=== PATIENT | male | born 1960 | race Caucasian/White ===

== ENCOUNTER → 2023-03-25 06:26 | Day surgery (SDC) | payer BC, SELFPAY | LOC: GI 06:26 | PROVIDERS: ATTENDING PHYSICIAN Internal Medicine Gastroenterology | DX: Z12.11 Encounter for screening for malignant neoplasm of colon (principal); K64.0 First degree hemorrhoids; D12.2 Benign neoplasm of ascending colon; D12.3 Benign neoplasm of transverse colon; D12.5 Benign neoplasm of sigmoid colon; D12.8 Benign neoplasm of rectum; K63.5 Polyp of colon; K22.2 Esophageal obstruction; K22.89 Other specified disease of esophagus; K44.9 Diaphragmatic hernia without obstruction or gangrene; K31.7 Polyp of stomach and duodenum; K31.89 Other diseases of stomach and duodenum; R10.84 Generalized abdominal pain; K20.90 Esophagitis, unspecified without bleeding | CPT/HCPCS: 43251; 45380; 45385; 43239; 88305; 88342 ==

== ENCOUNTER 2023-04-08 08:48 | Emergency (ER) | payer BC, SELFPAY ==
[2023-04-08 08:49] VITALS: BP 158/91
--- NOTE | 2023-04-08 09:27 | ED.GENMED ---
History of Present Illness
General
Chief Complaint: Nose Bleed
Source: patient
Exam Limitations: none
Time Seen by Provider: 04/08/23 09:06
Nursing documentation reviewed up to this point in time: agreed with
Travel History
Have you had any contact with someone who has COVID-19?: No
Do you have any symptoms of coronavirus? Fever > 100 degrees, chills, cough, shortness of breath, sore throat, loss of taste or smell, muscle aches, or headache?: No
History of Present Illness
History of Present Illness:
62-year-old male with history as documented presents to the emergency room for epistaxis. Patient reports onset of symptoms 3 days ago they have been intermittent. He denies any inciting trauma or injury. He says that he initially started
bleeding out of the right nare when he bent over to tack picker his cats food bowl. He says that since then he has had 3-4 episodes of epistaxis from the right nare that resolved after pressure. This morning he says that bleeding started 'like a
faucet' out of the right nare and he had trouble controlling it and so he came to the emergency room. Fortunately bleeding has stopped since arrival here to the emergency room. He denies any bleeding at the left nare today. He denies any
significant posterior bleeding or swallowing of blood. He denies being on any blood thinners.
Past History
Past History
ED Past Medical History: Asthma, GERD and Other (Chronic sinus problems, Lymes disease)
ED Past Surgical History: Cholecystectomy and Orthopedic
Social History
Tobacco: Smoker
Alcohol: Occasional
Drug: None
Personal:
Living: with family
Employment: Employed
Family History
Family History: Early CAD and CAD
Review of Systems
Review of Systems
All Other Systems: ROS reviewed and negative except as documented in HPI and ROS
EENT: Reports other (Epistaxis)
Phy Exam
Physical Exam
Physical Exam:
General: Awake, alert; no acute distress
Head: Normocephalic, atraumatic
Eyes: Conjunctiva normal, sclera anicteric
Nose: Patient has abrasion to the right nasal septum at the 6 o'clock position with no active bleeding; no blood around the left nare and left nasal septum appears normal
Throat: Airway intact, handling secretions, no posterior bleeding
Neck: Trachea midline
Lungs: Breathing comfortably in no distress
Heart: Regular rate
Neuro: No gross deficit
Skin: no rash
Extremities: Warm, well-perfused
Scores
Heart Failure Risk
Heart Failure Risk Score: Not Applicable
Heart Score for Chest Pain Patients
STEMI patient?: Not applicable
Withdrawal Assessment of Alcohol
Withdrawal Assessment Completed?: Not applicable
Course
Vital Signs
Initial and Last Documented VS:
Initial Vital Signs
Temp Pulse Resp BP Pulse Ox
36.8 C 104 18 158/91 98
04/08/23 08:49 04/08/23 08:49 04/08/23 08:49 04/08/23 08:49 04/08/23 08:49
Last Documented Vital Signs
Temp Pulse Resp BP Pulse Ox
36.8 C 104 18 158/91 98
04/08/23 08:49 04/08/23 08:49 04/08/23 08:49 04/08/23 08:49 04/08/23 08:49
Procedures
Nosebleed
Drug treatment: Epinephrine
Treatment: Silver nitrate cautery
Post treatment bleeding: none- good control
MDM/Problems Addressed
Differential Diagnosis Includes:
Anterior epistaxis
MDM/Problems Addressed:
62-year-old male presents to the emergency room for evaluation of intermittent bleeding from the right nare over the past 3 days. Currently hemostatic but he has a visible source of bleeding on the right nasal septum. Pretreated with some local
topical epinephrine and performed silver nitrate cautery to prevent rebleeding. Observed after cautery with no additional bleeding. Will discharge, referred to ENT as needed, advised to use Vaseline to keep the nasal septum moist. He feels
comfortable with this plan. Spoke about return precautions all questions answered.
Acute Exacerbation and/or Progression of Chronic Illness:
Acutely hypertensive�no signs or symptoms of hypertensive emergency no indication for emergent antihypertensive treatment at present
Acute Exacerbation and/or Progression of Chronic Illness: HTN
*Pulse Oximetry
Patient hypoxic: no
*Critical Care Note
Total Time (30-74mins, 75-104mins- exclusive of procedures): Not Applicable
Data Reviewed
Source: patient
ED Attending Note
-
Portions of this chart may have been created with voice recognition software.� Occasional wrong word or��sound alike� substitutions may have occurred due to the inherent limitations of voice recognition software.
Discharge Plan
Departure
Patient with high blood pressure during this ER visit?: Yes
Discharge Problem:
Acute anterior epistaxis
Instructions: Nosebleeds (DC)
Prescriptions:
No Action
phenazopyridine 200 MG tablet
200 mg PO PRN PRN (Reason: bladder pain)
lidocaine [LMX 4] 1 APPLIC cream
1 applic S PRN PRN (Reason: pain)
metronidazole 500 MG tablet
500 mg PO TID
acyclovir 400 MG tablet
400 mg PO TID
vancomycin [Vancocin] 250 MG capsule
500 mg PO QID
mupirocin 1 APPLIC ointment
1 applic topical PRN PRN (Reason: unknown)
fluconazole 100 MG tablet
100 mg PO DAILY Qty: 7 0RF
triamcinolone acetonide [Kenalog] 15 GM ointment
1 applic S BID Qty: 1 0RF
Referrals:
Tien Arias MD [Family Provider] - Call in 1-3 days for appt
Codey Garcia MD [Active] - As needed (ENT)
Activity Restrictions/Additional Instructions:
Thank you for visiting the Emergency Department at [facility].
1. Please schedule a follow up appointment as directed. Call first thing tomorrow morning to make an appointment.
2. If indicated, please take your medications as instructed and indicated on discharge paperwork.
3. If any of your symptoms do not improve, or persist, or become more severe within 6-12 hours, please return to the emergency department for further care.
4. Please return to the emergency department if you develop a headache, neck pain/stiffness, fever greater than 100.4F, chest pain, shortness of breath, persistent nausea, vomiting, slurred speech, difficulty walking, numbness/tingling, weakness,
signs of infection or any other symptoms that are worrisome to you.
Please call [phone] if you have any questions.
[2023-04-08 10:35] VITALS: BP 132/74
== END 2023-04-08 10:44 | disposition home or self-care (01) ==
LOC: EMR 08:48
PROVIDERS: EMERGENCY PHYSICIAN Emergency Medicine; FAMILY PHYSICIAN Family Medicine
DX: R04.0 Epistaxis (principal); F17.200 Nicotine dependence, unspecified, uncomplicated; R03.0 Elevated blood-pressure reading, without diagnosis of hypertension
CPT/HCPCS: 99282; 30901

== ENCOUNTER 2023-04-08 21:58 | Emergency (ER) | payer BC, SELFPAY ==
[2023-04-08 22:01] VITALS: BP 153/97
--- NOTE | 2023-04-08 22:45 | ED.GENMED ---
History of Present Illness
General
Chief Complaint: Nose Bleed
Time Seen by Provider: 04/08/23 22:31
Travel History
Have you had any contact with someone who has COVID-19?: No
Do you have any symptoms of coronavirus? Fever > 100 degrees, chills, cough, shortness of breath, sore throat, loss of taste or smell, muscle aches, or headache?: No
History of Present Illness
History of Present Illness:
HPI: The patient presents with recurrence of nosebleed. I reviewed the records from earlier today. The patient had been having nosebleeds that started 2 days ago. Today he came in and had chemical cauterization to the right anterior nasal septum.
He was doing well until he sneezed this evening and then bleeding became more severe
EXAM:
GENERAL: Well appearing in no distress
HEENT: Moist oral mucosa, there is a recent appearing subcentimeter region of recent bleeding (without active bleeding) to the anterior inferior aspect of the right nasal septum
NEUROLOGIC: Excellent strength all extremities, no coordination deficits
PSYCHIATRIC: Appropriate mental status, normal insight and judgement
EXTREMITIES: Nontender, no edema, moves all extremities equally
SKIN: No rash, no lesions
ED COURSE:
10:45 PM: I initially evaluated patient
NUMBER AND COMPLEXITY OF PROBLEMS ADDRESSED AT THE ENCOUNTER
� Chronic conditions affecting care: COPD, history of Raynaud's
� Acute Exacerbation and/or Progression of Chronic Illness:
� Differential Diagnosis includes: Anterior epistaxis, posterior epistaxis
AMOUNT AND/OR COMPLEXITY OF DATA TO BE REVIEWED AND ANALYZED
� I performed an independent evaluation of and my interpretation is:
EKG:
CT:
X-rays:
Laboratory Studies:
Other:
� Review of other/old records: I reviewed the notes from earlier today
� Clinical information was obtained by an independent historian: I spoke to son
� Prescriptions/Medications Considered but not given:
� Further testing considered but not performed:
RISK OF COMPLICATIONS AND/OR MORBIDITY OR MORTALITY OF PATIENT MANAGEMENT
� Social determinants of health affecting care: Lives at home
� Discussion with other providers:
� Escalation of care including admission/observation vs risk of discharge considered: I initially used [place]-Synephrine soaked cotton and then placed a larger area of silver nitrate cauterization to the right anterior nasal septum.
There was no further bleeding however the patient was concerned about ongoing bleeding I then 5.5 cm rapid Rhino however the patient could not tolerate the discomfort and this was stopped mid procedure. I then placed an 8 x 4 inch Surgicel into
the right anterior nasal septum to axis packing. He says he already has an ENT doctor to follow-up with.
Past History
Past History
ED Past Medical History: Asthma, GERD and Other (Chronic sinus problems, Lymes disease)
ED Past Surgical History: Cholecystectomy and Orthopedic
Social History
Tobacco: Smoker
Alcohol: Occasional
Drug: None
Personal:
Living: with family
Employment: Employed
Family History
Family History: Early CAD and CAD
Phy Exam
Physical Exam
Physical Exam:
See HPI
Course
Orders/Labs/Results
Orders:
Orders
04/08/23 22:51
Phenylephrine 0.5% Regular Spr [[place]-Synephrine 0.5% Nasal [place]] 1 spray .ROUTE .[facility]
04/08/23 22:53
Phenylephrine 0.5% Regular Spr [[place]-Synephrine 0.5% Nasal [place]] 1 spray NASAL NOW STA
Vital Signs
Initial and Last Documented VS:
Initial Vital Signs
Temp Pulse Resp BP Pulse Ox
97.5 F 93 16 153/97 96
04/08/23 22:01 04/08/23 22:01 04/08/23 22:01 04/08/23 22:01 04/08/23 22:01
Last Documented Vital Signs
Temp Pulse Resp BP Pulse Ox
97.5 F 93 16 153/97 96
04/08/23 22:01 04/08/23 22:01 04/08/23 22:01 04/08/23 22:01 04/08/23 22:01
Procedures
Nosebleed
Drug treatment: Neosynephrine
Treatment: Silver nitrate cautery and other
Post treatment bleeding: none- good control
Additional information:
I placed Surgicel 8 x 4 inches into the right anterior nasal septum with no further bleeding
*Critical Care Note
Total Time (30-74mins, 75-104mins- exclusive of procedures): Not Applicable
ED Attending Note
-
Portions of this chart may have been created with voice recognition software.� Occasional wrong word or��sound alike� substitutions may have occurred due to the inherent limitations of voice recognition software.
Discharge Plan
Departure
Patient Disposition: Home (Routine Discharge)
Date of Disposition: 04/08/23
Time of Disposition: 23:57
Patient with high blood pressure during this ER visit?: Yes
Discharge Problem:
Acute anterior epistaxis
Prescriptions:
No Action
phenazopyridine 200 MG tablet
200 mg PO PRN PRN (Reason: bladder pain)
lidocaine [LMX 4] 1 APPLIC cream
1 applic S PRN PRN (Reason: pain)
metronidazole 500 MG tablet
500 mg PO TID
acyclovir 400 MG tablet
400 mg PO TID
vancomycin [Vancocin] 250 MG capsule
500 mg PO QID
mupirocin 1 APPLIC ointment
1 applic topical PRN PRN (Reason: unknown)
fluconazole 100 MG tablet
100 mg PO DAILY Qty: 7 0RF
triamcinolone acetonide [Kenalog] 15 GM ointment
1 applic S BID Qty: 1 0RF
Referrals:
Tien Arias MD [Family Provider] -
Activity Restrictions/Additional Instructions:
I placed Quincy-Synephrine soaked cotton initially and then cauterized an area just below the initial cauterization site. I then placed Surgicel to be used as packing. I recommend you leave this in for 48 hours. Follow-up with your own ENT physician
for further management of the nosebleed. Return here if worse.
Interventions
Interventions:
*Risk Screen - Suicide Last Done: 04/08/23 22:01
*General Assessment Last Done: 04/08/23 22:56
*Neglect/Abuse Screening Last Done: 04/08/23 22:01
ED- Fall Risk Assessment Last Done: 04/08/23 22:01
*ED COVID-19 Vaccine History Last Done: 04/08/23 22:01
ED-EENT Assessment Last Done: 04/08/23 22:56
[2023-04-08] MEDS: NEO-SYNEPHRINE 0.5% NASAL SPRAY 1 SPRAY NASAL (22:55)
--- NOTE | 2023-04-08 22:59 | EDRN ---
pressure. Pt states that he has a spot on the R side of his nose that bleeds.
[2023-04-09 00:10] VITALS: BP 137/96
== END 2023-04-09 00:10 | disposition home or self-care (01) ==
LOC: EMR 21:58
PROVIDERS: EMERGENCY PHYSICIAN Emergency Medicine; FAMILY PHYSICIAN Family Medicine
DX: R04.0 Epistaxis (principal); R03.0 Elevated blood-pressure reading, without diagnosis of hypertension; F17.200 Nicotine dependence, unspecified, uncomplicated; J44.89 Other specified chronic obstructive pulmonary disease; I73.00 Raynaud's syndrome without gangrene
CPT/HCPCS: 99282; 30901

== ENCOUNTER → 2023-07-12 08:03 | Outpatient (REF) | payer BC, SELFPAY | LOC: REG 08:03 | PROVIDERS: ATTENDING PHYSICIAN Nurse Practitioner Family | DX: Z01.818 Encounter for other preprocedural examination (principal); G56.02 Carpal tunnel syndrome, left upper limb; M67.40 Ganglion, unspecified site; J43.1 Panlobular emphysema; Z72.0 Tobacco use | CPT/HCPCS: 93005 ==

== ENCOUNTER → 2023-10-10 07:54 | Outpatient (REF) | payer BC, SELFPAY | LOC: RCS 07:54 | PROVIDERS: ATTENDING PHYSICIAN Internal Medicine Cardiovascular Disease; FAMILY PHYSICIAN Family Medicine | DX: R94.31 Abnormal electrocardiogram [ECG] [EKG] (principal); I45.10 Unspecified right bundle-branch block | CPT/HCPCS: 93306 ==